=== PATIENT | male | born 1940 | race Caucasian/White ===

== ENCOUNTER 2018-01-27 08:03 | Observation (INO) | payer OTHER, BC ==
[~2018-01-27] VITALS: Ht 182.9 cm; Wt 68.0 kg
--- NOTE | ~2018-01-27 | EKG ---
[address] [address] ELECTROCARDIOGRAM REPORT Name: LUZ CALIXTO Room #: 217-P [facility].#: [id number] Admission: 01/27/18 Attend Phys: Devaughn Maharaj MD, Discharge: Date of : 38 Report #: [id number] THIS REPORT FOR: //name// [facility] Test Date: 2018-01-27 Test Time: 08:39:34 Pat Name: LUZ CALIXTO Department: Room: [facility] Gender: M Coroner Transport Technician: Gayatri BENÍTEZ : 1940 Requested By: Devaughn Maharaj Order Number: [id number] MD: Reed Baumann Measurements Intervals [place] Rate: 63 P: 62 UT: 158 QRS: -54 QRSD: 136 T: 30 QT: 445 QTc: 456 Interpretive Statements Sinus rhythm RBBB and LAFB Compared to ECG 07/13/2008 22:08:42 Left anterior fascicular block now present Electronically Signed On 01-27-2018 17:02:28 CDT by Reed Baumann [email or web address] <ELECTRONICALLY SIGNED> By: Reed Baumann MD, [facility] 01/27/18 1702 0839 0839 Reed Baumann MD, [facility] /EPI
--- NOTE | ~2018-01-27 | CATHLAB ---
[facility] [address] [place] [address] INVASIVE PROCEDURE REPORT Name: LUZ CALIXTO [facility] [id number] Admission: 01/27/18 Attend Phys: Devaughn Maharaj, Discharge: Date of : 38 Date of Service: 01/27/18 1303 Report #: [id number] THIS REPORT FOR: //name// APPROVED REPORT Study performed: 01/27/2018 08:54:47 Patient Details Patient Status: Out-Patient Room #: The patient is a 77 year-old male Event Personnel Devaughn Maharaj Powderman, Diogo Greenwood RN RN, Berhane Dimas RN, Tan Vargas Monitor, Monse Frias RTR, WELLNESS PROGRAM MANAGER Scrub Procedures Performed JORDEN Place w/wo Plasty Single CIRC 011661 Renal Bilateral Peripheral Angiography 4585301 CVRENALBIL Indication Chest pain Procedure Narrative The Right Groin^ was infiltrated with 1% Lidocaine subcutaneous anesthesia. A PINNACLE 6FR Sheath #[id number] sheath was inserted into the RFA^. Coronary angiography was performed using coronary diagnostic catheters. The right coronary system was accessed and visualized with a jr4 catheter. Closure device was deployed with a 6 Fr MYNXGRIP 6/7F #[id number]. There was no hematoma. Intraoperative Conscious Sedation Sedation start time: 9.31 Case end Time: 10.31 Fentanyl 50 mcg Versed 1 mg Fluoro Time: 8.52 minutes Dose: DAP 6482 cGycm2 866 mGy Contrast Type and Amount: Visipaque 90 ml Hemodynamics The aortic pressure is 179/74 mmHg with a mean of 103 mmHg. PCI Technique Lesion Percutaneous coronary intervention was performed on the [facility] [address] [place] [address] INVASIVE PROCEDURE REPORT Name: LUZ CALIXTO Room #: [facility]#: [id number] Admission: 01/27/18 Attend Phys: Devaughn Maharaj, Discharge: Date of : 38 Date of Service: 01/27/18 1303 Report #: [id number] circumflex artery segment. A LAUNCHER 6FR EBU 3.5 #[id number] Guide Catheter was used to engage the ostium. A Luge Wire .014 x 182CM #[id number] Interventional Guidewire was used to cross the lesion. BALLOON DILATION A Balloon catheter Sprinter OTW 2.5 x 20 #[id number] was inserted and inflated up to 10.00atm for 28seconds. STENT DEPLOYMENT A drug-eluting stent RESOLUTE OTW 2.75 X 22 #[id number] was inserted and inflated up to 12.00atm for 25seconds. Additional Inflation: 16.00atm for 30seconds. Conclusion #1 successful PTCA stent of the proximal circumflex OM nondominant but moderate distribution 90% to 0% with placement of a 2.75 x 22 resolute drug-eluting stent post I to 3.0 mm. #2 FFR of mid LAD with diagonal bifurcation lesion. PDA/PD 0.92. With adenosine 0.82 will not intervene does not make physiologic significance. #3 continue dual antiplatelet therapy post-PTCA stent protocol to CCU in stable condition. Minx closure device utilized right femoral artery no complication <ELECTRONICALLY SIGNED> By: Devaughn Maharaj MD, FACC 01/27/18 1303 1303 1303 Devaughn Maharaj MD, FACC /INF
--- NOTE | ~2018-01-27 | EKG ---
[address] [place] [address] ELECTROCARDIOGRAM REPORT Name: LUZ CALIXTO Room #: 217-[facility].R.#: [id number] Admission: 01/27/18 Attend Phys: Devaughn Maharaj MD, Discharge: Date of : 38 Report #: [id number] THIS REPORT FOR: //name// [facility] Test Date: 2018-01-28 Test Time: 06:16:45 Pat Name: LUZ CALIXTO Department: Room: 217 Gender: M Sustainability Project Coordinator: GR : 1940 Requested By: Devaughn Maharaj Order Number: [id number] MD: Reed Baumann Measurements Intervals [place] Rate: 67 P: 38 NE: 169 QRS: -56 QRSD: 136 T: 13 QT: 446 QTc: 471 Interpretive Statements Sinus rhythm RBBB and LAFB Compared to ECG 01/27/2018 14:19:14 No significant changes Electronically Signed On 01-28-2018 7:39:53 CDT by Reed Baumann [email or web address] <ELECTRONICALLY SIGNED> By: Reed Baumann MD, [facility] 01/28/18 0739 5 5 Reed Baumann MD, [facility] /EPI
--- NOTE | ~2018-01-27 | EKG ---
[address] [address] ELECTROCARDIOGRAM REPORT Name: LUZ CALIXTO Room #: 217-P [facility]#: [id number] Admission: 01/27/18 Attend Phys: Devaughn Maharaj MD, Discharge: Date of : 38 Report #: [id number] THIS REPORT FOR: //name// [facility] Test Date: 2018-01-27 Test Time: 14:19:14 Pat Name: LUZ CALIXTO Department: Room: [facility] Gender: M Life Trainer: HELENA : 1940 Requested By: Devaughn Maharaj Order Number: [id number] MD: Reed Baumann Measurements Intervals [place] Rate: 62 P: 48 NE: 178 QRS: -50 QRSD: 138 T: 14 QT: 435 QTc: 442 Interpretive Statements Sinus rhythm RBBB and LAFB Compared to ECG 07/13/2008 22:08:42 No significant change was found Electronically Signed On 01-27-2018 17:08:44 CDT by Reed Baumann [email or web address] <ELECTRONICALLY SIGNED> By: Reed Baumann MD, [facility] 01/27/18 1708 1419 1419 Reed Baumann MD, [facility] /EPI
[2018-01-27] MEDS ORDERED: ZETIA10 MG PO (08:34)
[2018-01-27] MEDS ORDERED: ASPIR 8181 MG PO (08:34)
[2018-01-27] MEDS ORDERED: ATORVASTATIN CA40 MG PO (08:34)
[2018-01-27] MEDS ORDERED: PLAVIX 75 MG TA75 M1 PO (08:34)
[2018-01-27] MEDS ORDERED: NORVASC5 MG PO (08:34)
[2018-01-27] MEDS ORDERED: HYDROCHLOROTHIA25 M2 PO (08:34)
[2018-01-27] MEDS ORDERED: AVAPRO300 MG PO (08:35)
[2018-01-27 08:46] LABS: HEMATOCRIT 39.9 % (42.0-52.0); HEMOGLOBIN 13.2 gm/dL (14.0-18.0); MCH 29.5 pg (26.0-34.0); MCV 89.5 fL (80.0-100.0); RBC 4.45 mil/uL (4.50-6.00); RDW 14.2 % (10.5-14.5); WBC 11.4 thou/uL (4.0-11.0)
[2018-01-27 08:55] LABS: CALCIUM 9.3 mg/dL (8.5-10.1); POTASSIUM 4.1 mmol/L (3.5-5.1)
[2018-01-27 14:32] VITALS: BP 132/81
[2018-01-27 17:27] VITALS: BP 162/96
[2018-01-27 19:30] VITALS: BP 144/84
[2018-01-28 03:59] LABS: CALCIUM 8.9 mg/dL (8.5-10.1); CREATININE 1.8 mg/dL (0.7-1.3); POTASSIUM 4.1 mmol/L (3.5-5.1); TROPONIN-I 0.46 ng/mL (<0.06)
[2018-01-28 04:11] LABS: HEMATOCRIT 36.1 % (42.0-52.0); HEMOGLOBIN 12.3 gm/dL (14.0-18.0); MCH 30.7 pg (26.0-34.0); MCHC 34.1 g/dL (28.0-37.0); MCV 89.8 fL (80.0-100.0); RBC 4.02 mil/uL (4.50-6.00); RDW 14.3 % (10.5-14.5); WBC 9.3 thou/uL (4.0-11.0)
[2018-01-28 04:50] VITALS: BP 160/94
[2018-01-28 07:38] VITALS: BP 147/97
[2018-01-28] MEDS ORDERED: ASA5UEC PO (07:58)
[2018-01-28 10:18] VITALS: BP 147/97
== END 2018-01-28 10:55 | disposition home or self-care (01) ==
LOC: CATH 08:03 → 2N 08:17 → CATH 12:12 → ENTRNSPT 01-28 10:46 → 2N 01-28 10:55
PROVIDERS: Internal Medicine Cardiovascular Disease
DX: I25.10 Atherosclerotic heart disease of native coronary artery without angina pectoris (principal); I73.9 Peripheral vascular disease, unspecified; E78.5 Hyperlipidemia, unspecified; I71.4 Abdominal aortic aneurysm, without rupture; I12.9 Hypertensive chronic kidney disease with stage 1 through stage 4 chronic kidney disease, or unspecified chronic kidney disease; N18.9 Chronic kidney disease, unspecified; I70.1 Atherosclerosis of renal artery; I65.29 Occlusion and stenosis of unspecified carotid artery; F17.200 Nicotine dependence, unspecified, uncomplicated

== ENCOUNTER → 2018-05-11 | Outpatient (CLI) | payer OTHER, BC ==
[~2018-05-11] MED LIST: ASA5UEC PO; ASPIR 8181 MG PO; ATORVASTATIN CA40 MG PO; AVAPRO300 MG PO; HYDROCHLOROTHIA25 M2 PO; NORVASC5 MG PO; PLAVIX 75 MG TA75 M1 PO; ZETIA10 MG PO
== END ==
LOC: LAB 11:26 → CAT 11:26
DX: I71.4 Abdominal aortic aneurysm, without rupture (principal)

== ENCOUNTER 2019-05-26 14:14 | Emergency (ER) | payer OTHER ==
[~2019-05-26] VITALS: Ht 180.3 cm; Wt 68.0 kg
[2019-05-26 14:50] LABS: ABSOLUTE NEUTROPHILS 12.9 thou/uL (1.4-8.2); BASOPHILS 0.7 % (0.0-2.0); EOSINOPHILS 0.2 % (0.0-3.0); HEMATOCRIT 39.9 % (42.0-52.0); LYMPHOCYTES 6.5 % (24.0-44.0); MCH 29.6 pg (26.0-34.0); MCHC 32.7 g/dL (28.0-37.0); MCV 90.6 fL (80.0-100.0); PLATELET COUNT 356 thou/uL (150-400); POLYS 86.6 % (36.0-66.0); RDW 14.4 % (10.5-14.5)
[2019-05-26 14:57] LABS: CALCIUM 9.6 mg/dL (8.5-10.1); CREATININE 2.3 mg/dL (0.7-1.3); POTASSIUM 4.6 mmol/L (3.5-5.1)
[2019-05-26 18:03] VITALS: BP 198/110
== END 2019-05-26 18:03 | disposition home or self-care (01) ==
LOC: ER 14:14
PROVIDERS: Student in an Organized Health Care Education/Training Program
DX: I73.9 Peripheral vascular disease, unspecified (principal); I10 Essential (primary) hypertension; I71.4 Abdominal aortic aneurysm, without rupture; J44.9 Chronic obstructive pulmonary disease, unspecified; K21.9 Gastro-esophageal reflux disease without esophagitis; G43.909 Migraine, unspecified, not intractable, without status migrainosus; F17.210 Nicotine dependence, cigarettes, uncomplicated; Z95.5 Presence of coronary angioplasty implant and graft; Z91.041 Radiographic dye allergy status

== ENCOUNTER 2019-05-27 13:52 | Inpatient (IN) | payer OTHER ==
[~2019-05-27] VITALS: Ht 182.9 cm; Wt 64.0 kg
[2019-05-27 16:45] LABS: HEMATOCRIT 35.3 % (42.0-52.0); HEMOGLOBIN 11.7 gm/dL (14.0-18.0); MCH 30.3 pg (26.0-34.0); MCV 91.8 fL (80.0-100.0); RBC 3.84 mil/uL (4.50-6.00); RDW 14.6 % (10.5-14.5); WBC 9.3 thou/uL (4.0-11.0)
[2019-05-27 17:00] LABS: CHOLESTEROL 174 mg/dL (<200); HDL CHOLESTEROL 39 mg/dL (>40); LDL CHOLESTEROL 112 mg/dL (<100); TC:HDL 4.5 Ratio (Not establshd); TRIGLYCERIDE 116 mg/dL (<150); VLDL 23 mg/dL (<40)
[2019-05-27 18:01] LABS: CALCIUM 8.9 mg/dL (8.5-10.1); CREATININE 2.1 mg/dL (0.7-1.3); POTASSIUM 3.5 mmol/L (3.5-5.1); TOTAL BILIRUBIN 0.3 mg/dL (<0.1-1.0); TOTAL PROTEIN 6.7 g/dL (6.4-8.2)
[2019-05-27 19:45] LABS: FOLIC ACID 9.4 ng/mL (8.6-58.9)
[2019-05-27 20:15] VITALS: BP 172/98
[2019-05-28] VITALS (7 sets, daily range): BP systolic 128–167; BP diastolic 67–90
[2019-05-28 04:02] LABS: HEMATOCRIT 38.4 % (42.0-52.0); HEMOGLOBIN 12.3 gm/dL (14.0-18.0); MCH 29.4 pg (26.0-34.0); MCHC 32.1 g/dL (28.0-37.0); MCV 91.6 fL (80.0-100.0); RBC 4.19 mil/uL (4.50-6.00); RDW 15.1 % (10.5-14.5)
[2019-05-28 04:30] LABS: ALBUMIN 3.1 g/dL (3.4-5.0); ANION GAP 10 mmol/L (7-16); BUN 28 mg/dL (7-18); CALCIUM 8.7 mg/dL (8.5-10.1); CHLORIDE 103 mmol/L (98-107); CO2 24 mmol/L (21-32); CREATININE 1.9 mg/dL (0.7-1.3); GLUCOSE 86 mg/dL (74-106); PHOSPHORUS 2.8 mg/dL (2.5-4.9); POTASSIUM 3.4 mmol/L (3.5-5.1); SODIUM 137 mmol/L (136-145); TROPONIN-I <0.06 ng/mL (<0.06)
[2019-05-28 15:01] LABS: URINE BILIRUBIN NEGATIVE (Negative); URINE BLOOD NEGATIVE (Negative); URINE CLARITY CLEAR; URINE COLOR YELLOW; URINE GLUCOSE-RANDOM* NEGATIVE (Negative); URINE KETONES NEGATIVE (Negative); URINE LEUKOCYTES NEGATIVE (Negative); URINE NITRITE NEGATIVE (Negative); URINE PROTEIN (DIPSTICK) NEGATIVE (Negative); URINE UROBILINOGEN 0.2 E.U./dl (0.2-1.0)
[2019-05-28 15:06] LABS: URINE CREATININE-RANDOM* 49.4 mg/dL; URINE PROTEIN-RANDOM* 11.2 mg/dL (<11.9)
[2019-05-29 03:36] LABS: CALCIUM 8.7 mg/dL (8.5-10.1); CREATININE 1.9 mg/dL (0.7-1.3); PHOSPHORUS 3.1 mg/dL (2.5-4.9); POTASSIUM 3.9 mmol/L (3.5-5.1)
[2019-05-29 04:45] VITALS: BP 140/84
[2019-05-29 07:50] VITALS: BP 142/75
[2019-05-29 11:52] VITALS: BP 148/90
[2019-05-29 15:15] VITALS: BP 142/96
[2019-05-29 20:15] VITALS: BP 150/87
[2019-05-30 07:28] VITALS: BP 136/87
[2019-05-30 14:26] VITALS: BP 143/83
[2019-05-30 20:15] VITALS: BP 141/90
[2019-05-31 08:25] VITALS: BP 121/78
[2019-05-31 09:06] LABS: CALCIUM 9.3 mg/dL (8.5-10.1); CREATININE 2.2 mg/dL (0.7-1.3); POTASSIUM 4.2 mmol/L (3.5-5.1)
[2019-05-31 10:31] LABS: FOLIC ACID 9.2 ng/mL (8.6-58.9)
[2019-05-31 12:15] VITALS: BP 121/78
--- NOTE | 2019-05-31 15:47 | EKG ---
[address] [place] [address] ELECTROCARDIOGRAM REPORT Name: LUZ CALIXTO Room #: 411-P ADM IN M.R.#: [id number] Admission: 05/27/19 Attend Phys: Jose Mcknight Discharge: Date of : 38 Report #: [id number] THIS REPORT FOR: //name// [facility] Test Date: 2019-05-28 Test Time: 08:14:16 Pat Name: LUZ CALIXTO Department: Room: 411 Gender: M Field Map Technician: Cassidy DEAL : 1940 Requested By: Devaughn Maharaj Order Number: [id number] MD: Estevan Chavez Measurements Intervals [place] Rate: 58 P: 60 UT: 160 QRS: -43 QRSD: 141 T: 0 QT: 426 QTc: 419 Interpretive Statements Sinus rhythm RBBB and LAFB Compared to ECG 01/28/2018 06:16:45 No significant changes Electronically Signed On 05-31-2019 15:47:05 AIRPLANE ELECTRICAL REPAIRER by Estevan Chavez [email or web address] <ELECTRONICALLY SIGNED> By: Estevan Chavez MD 05/31/19 1547 3 Estevan Chavez MD /ANDREINA
[2019-05-31 19:43] VITALS: BP 143/91
[2019-06-01 00:15] LABS: URINE BILIRUBIN NEGATIVE (Negative); URINE BLOOD TRACE (Negative); URINE CLARITY CLEAR; URINE COLOR YELLOW; URINE GLUCOSE-RANDOM* NEGATIVE (Negative); URINE KETONES NEGATIVE (Negative); URINE LEUKOCYTES NEGATIVE (Negative); URINE NITRITE NEGATIVE (Negative); URINE PROTEIN (DIPSTICK) NEGATIVE (Negative); URINE UROBILINOGEN 0.2 E.U./dl (0.2-1.0)
[2019-06-01 07:45] VITALS: BP 151/75
--- NOTE | 2019-06-01 10:26 | HC ---
[facility] [place] [address] CONSULTATION Name: LUZ CALIXTO Room #: 411-P ADM IN M.R.#: [id number] Admission: 05/27/19 Attend Phys: Jose Mcknight Discharge: Date of : 38 Report #: [id number] THIS REPORT FOR: //name// CC: Seng Mcknight DATE OF SERVICE: 05/31/2019 CHIEF COMPLAINT: Skin tears to both elbows. HISTORY OF PRESENT ILLNESS: This is an 79-year-old male patient who was admitted on 05/27/2019 after developing lower extremity weakness. He seems quite confused at this time, but apparently has developed skin tears to both of his elbows and I have been asked to see him in this regard. The patient cannot tell me how or when he injured his elbows and cannot do much other than basic following of commands. He does make eye contact. PAST MEDICAL HISTORY: Noted for previous lithotripsy, history of migraines, renal artery stent, hypertension, coronary artery disease, hypercholesterolemia, 68-ilte-utye of smoking, gastroesophageal reflux and peripheral vascular disease. ALLERGIES: No known drug allergies. MEDICATIONS: Include Tylenol, amlodipine, Lipitor, clopidogrel, Lexapro, losartan, melatonin, multivitamin, Bystolic, Zofran, spironolactone, tamsulosin, tramadol and Ambien. SOCIAL HISTORY: The patient has a 39-ozog-zdap history of smoking. Unknown history of alcohol or drug use. FAMILY HISTORY: Unknown. REVIEW OF SYSTEMS: Not obtainable due to the patient's confusion. PHYSICAL EXAMINATION: VITAL SIGNS: At this time include temperature 36.6, pulse 66, respiratory rate 18, blood pressure 121/78. GENERAL: This is a chronically ill-appearing male patient who appears to be in minimal distress. HEENT: Head is normocephalic. Nose and throat are clear. NECK: Supple. LUNGS: Diminished. HEART: Regular rate. ABDOMEN: Bowel sounds present. EXTREMITIES: Demonstrate skin tears to both elbows, greater on the left than on [address] [address] CONSULTATION Name: LUZ CALIXTO HAKEEM Room #: 411 ADM IN M.R.#: [id number] Admission: 05/27/19 Attend Phys: Jose Mcknight Discharge: Date of : 38 Report #: [id number] the right. He has had reapproximation of some of the skin edges utilizing Steri-Strips that were in place. Upon my evaluation, he has more open areas with superficial skin tears to the right elbow. None of the areas are infected. NEUROLOGIC: The patient is alert. His level of orientation is difficult to assess. LABORATORY DATA: White blood cell count 10,000, hemoglobin 12.3. Sodium 135, potassium 4.2, chloride 101, CO2 27, BUN 31, creatinine 2.2, glucose 137. CLINICAL IMPRESSION: 1. Skin tears, bilateral elbows. 2. Dementia. 3. Chronic kidney disease. 4. History of coronary artery disease. 5. Tobacco abuse. RECOMMENDATIONS: At this point in time, we have removed some of the Tegaderm that had been applied to his skin. We will place Xeroform gauze and ABD and Kerlix to the left elbow. We have applied Moniteau to the skin tears of the right elbow and then cover with ABD and Kerlix. These topical dressings should be changed daily. Recommend continuation of current medications and PT and OT as tolerated. I appreciate being asked to see him in consultation. <ELECTRONICALLY SIGNED> By: Natan Martines MD 06/01/19 1026 [id number] Natan Martines MD /nt
[2019-06-01 15:20] VITALS: BP 149/79
[2019-06-01 20:33] VITALS: BP 140/70
[2019-06-01 22:34] VITALS: BP 140/70
--- NOTE | 2019-06-02 07:32 | HC ---
[facility] [place] [address] CONSULTATION Name: LUZ CALIXTO Room #: 411-P ADM IN M.R.#: [id number] Admission: 05/27/19 Attend Phys: Jose Mcknight Discharge: Date of : 38 Report #: [id number] THIS REPORT FOR: //name// CC: Seng Mcknight DATE OF SERVICE: 05/28/2019 REASON FOR CONSULTATION: Elevated creatinine. REASON FOR PRESENTATION: Feeling weak. HISTORY OF PRESENT ILLNESS: An 79-year-old who presented yesterday with bilateral lower extremity weakness. He has been feeling tired in the last 2-3 weeks and is not able to do his daily activity. He tells me before that he was able to do all of his daily activities. The patient is known to have an extensive past medical history including and not limited to renal vascular hypertension with renal stents in the past. Details of those are not available for me, he is also known to have coronary artery disease and had an extensive history of smoking in the past. He had an aortic stent graft placed back in 2002. His creatinine all through 2018 was in the 1.8 to 2.3 range. When he presented yesterday or few days ago, his creatinine was 2.3 and has come down to 1.9. His blood pressure was elevated. I am being consulted to manage his chronic kidney disease. Unfortunately, the patient does not have a good insight about his blood pressure control and his kidney issues. He tells me that he is not aware that he had kidney issues. PAST MEDICAL HISTORY: Extensive and includes the followin. AAA, stent graft in 2002. 2. Renal artery stent in 2001. 3. Hypertension. 4. Coronary artery disease. 5. Hyperlipidemia. 6. Fifty years of cigarette smoking. 7. Chronic obstructive pulmonary disease. 8. Bilateral carotid stenosis. 9. Peripheral vascular disease. MEDICATIONS: Currently, the patient is maintained on: 1. Atorvastatin. 2. Plavix. 3. Bystolic. 4. Norvasc. 5. Spironolactone. 6. Benicar has been discontinued. [facility] [address] [place] [address] CONSULTATION Name: LUZ CALIXTO Room #: 411-P [facility] ..#: [id number] Admission: 05/27/19 Attend Phys: Jose Mcknight Discharge: Date of : 38 Report #: [id number] FAMILY HISTORY: Significant for hypertension. REVIEW OF SYSTEMS: GENERAL: No fever or chills. CARDIOVASCULAR: No chest pain or palpitation. PULMONARY: No cough or hemoptysis. GASTROINTESTINAL: No nausea or vomiting. GENITOURINARY: No frequency, no urgency. MUSCULOSKELETAL: As per the history of present illness. SKIN: Multiple bruises on the lower extremities. NEUROLOGICAL: Significant bilateral lower extremity weakness. No headache, no dizziness. PHYSICAL EXAMINATION: VITAL SIGNS: Blood pressure now is 167/87. HEAD AND NECK: No jugular venous distention. CHEST: Clear to air bilaterally. CARDIOVASCULAR: Regular with no rub. ABDOMEN: Soft, nontender. EXTREMITIES: Multiple scratch painter on the lower extremities. LABORATORY DATA: Reviewed. Sodium 137, potassium 3.4, BUN is 28, creatinine is 1.9. IMPRESSION AND PLAN: 1. Uncontrolled hypertension. 2. Chronic kidney disease. 3. Peripheral vascular disease with extensive manifestations including abdominal aortic aneurysm stent graft, renal artery stenosis post-stent. 4. Debility. From the renal perspective, his creatinine seems to be at baseline. Blood pressure is marginally elevated. I will initiate the patient on an angiotensin receptor rebecca. Continue with the beta rebecca, calcium channel rebecca, Aldactone. Might consider adding a long-acting thiazide diuretic and discontinue Norvasc in the next few days based on his blood pressure progress. <ELECTRONICALLY SIGNED> By: Nilson Briseno MD 06/02/19 0732 0929 1036 Nilson Briseno MD /nt
[2019-06-02 11:18] LABS: CALCIUM 9.1 mg/dL (8.5-10.1); CREATININE 2.1 mg/dL (0.7-1.3)
[2019-06-02 17:21] VITALS: BP 108/68
[2019-06-02 19:56] VITALS: BP 126/71
[2019-06-03 07:05] VITALS: BP 128/60
[2019-06-03 14:15] VITALS: BP 128/75
[2019-06-03 18:06] LABS: SYPHILIS AB Non Reactive (Non Reactive)
[2019-06-03 20:02] VITALS: BP 130/77
[2019-06-04 07:27] VITALS: BP 139/80
[2019-06-04 09:12] VITALS: BP 139/80
[2019-06-04] MEDS ORDERED: LIPITOR40 MG PO (09:15)
[2019-06-04] MEDS ORDERED: BYSTOLIC 5 MG5 M1 PO (09:15)
[2019-06-04] MEDS ORDERED: COZAAR100 MG PO (09:15)
[2019-06-04] MEDS ORDERED: CLOPIDOGREL75 MG PO (09:15)
[2019-06-04] MEDS ORDERED: FLOMAX0.4 MG PO (09:15)
[2019-06-04] MEDS ORDERED: PAIN & FEVER325 MG PO (09:16)
[2019-06-04] MEDS ORDERED: TRAZODONE HCL50 MG PO (09:16)
[2019-06-04] MEDS ORDERED: LEXAPRO 10 MG T10 M1 PO (09:16)
== END 2019-06-04 14:00 | DRG 551 ==
LOC: 4N 13:52 → 2N 13:52 → 4N 05-29 11:25
PROVIDERS: Hospitalist; Nurse Practitioner Family; ADMIT Hospitalist
DX: M54.16 Radiculopathy, lumbar region (principal); N17.0 Acute kidney failure with tubular necrosis; E43 Unspecified severe protein-calorie malnutrition; Z68.1 Body mass index [BMI] 19.9 or less, adult; N17.8 Other acute kidney failure; I16.0 Hypertensive urgency; I25.10 Atherosclerotic heart disease of native coronary artery without angina pectoris; I73.9 Peripheral vascular disease, unspecified; G43.909 Migraine, unspecified, not intractable, without status migrainosus; E78.00 Pure hypercholesterolemia, unspecified; J44.9 Chronic obstructive pulmonary disease, unspecified; K21.9 Gastro-esophageal reflux disease without esophagitis; F17.210 Nicotine dependence, cigarettes, uncomplicated; N18.9 Chronic kidney disease, unspecified; E78.5 Hyperlipidemia, unspecified; I70.1 Atherosclerosis of renal artery; I65.29 Occlusion and stenosis of unspecified carotid artery; Z66 Do not resuscitate; I71.4 Abdominal aortic aneurysm, without rupture; F03.90 Unspecified dementia, unspecified severity, without behavioral disturbance, psychotic disturbance, mood disturbance, and anxiety; E86.0 Dehydration; G47.00 Insomnia, unspecified; I12.9 Hypertensive chronic kidney disease with stage 1 through stage 4 chronic kidney disease, or unspecified chronic kidney disease; R41.0 Disorientation, unspecified; S51.012A Laceration without foreign body of left elbow, initial encounter; S51.011A Laceration without foreign body of right elbow, initial encounter; Z95.820 Peripheral vascular angioplasty status with implants and grafts; Z95.5 Presence of coronary angioplasty implant and graft; Z91.14 Patient's other noncompliance with medication regimen; X58.XXXA Exposure to other specified factors, initial encounter; Y93.89 Activity, other specified; Y92.89 Other specified places as the place of occurrence of the external cause; Y99.8 Other external cause status
CPT/HCPCS: 10081; 10790

== ENCOUNTER 2019-06-04 13:10 | Inpatient (IN) | payer OTHER ==
[~2019-06-04] VITALS: Ht 182.9 cm; Wt 65.4 kg
[~2019-06-04 13:10] MED LIST changes: +BYSTOLIC 5 MG5 M1 PO; +CLOPIDOGREL75 MG PO; +COZAAR100 MG PO; +FLOMAX0.4 MG PO; +LEXAPRO 10 MG T10 M1 PO; +LIPITOR40 MG PO; +PAIN & FEVER325 MG PO; +TRAZODONE HCL50 MG PO
[2019-06-04 15:00] VITALS: BP 120/65
--- NOTE | 2019-06-04 15:30 | NUR ---
PATIENT ADMITTED TO THE ROOM, FAMILY AT BEDSIDE AND CHAIR ALARM IS ON. PT IS CONFUSED BUT PLEASANT, PICKING AT UNSEEN THINGS IN THE AIR WHILE FAMILY ASSISTS TO ANSWER ADMISSION QUESTIONS. NOTED ON ADMISSION ASSESSMENT THAT PT HAS MULTIPLE SKIN TEARS. LEFT ARM HAS ONE OPEN TEAR AND 2 CLOSED TEARS THAT HAVE STERISTRIPS INTACT. RT ELBOW HAS MULTIPLE OLD SKIN TEARS AND THESE ARE HEALING AND SCABBED. SKIN IS VERY FRAGILE. OLD DRESSINGS REMOVED, OPENAREA REDRESSED WITH PROTECTIVE PAD, AND ARM SLEEVES APPLIED PER PRIMARY RN RECOMMENDATIONS. EDUCATION FOR ADMISSION PROVIDED TO PT AND , WELL PT'S SON. PT HAS MOIRA YNSTEADY GAIT, AND URINARY URGENCY. BRIEF WAS APPLIED FOR THE EVENING AFTER PT HAD URGENCY WITH SMALL INCONT VOID.
--- NOTE | 2019-06-04 16:08 | NUR ---
chart review, pt new to acute rehab this afternoon. pt up in recliner chair with boris and son at bedside. pt a & o to self, and son. pleasant. intro to cm,team meeting, home health and transition of care. stated "well medication were a problem and could push it, he would go and order picker but then might not take it"/. pt lives in house with , multi story home, 4 steps to enter in to the home. can stay on main level . has grab bars in bath room and walk in house. [facility] had accept for hh needs at dc. in was independent prior to hospital"/pt, son and boris. will cont following as needed for dc needs.
[2019-06-04 19:45] VITALS: BP 163/97
--- NOTE | 2019-06-04 21:31 | NUR ---
PT ADMITTED TO UNIT AT APPROXIMATELY 1500. REPORT RECIEIVED FROM DAMI OVALLE ON PREVIOUS UNIT, PRIOR TO PT TRANSFER TO UNIT. NURSE, BETTY, COMPLETED ADMISSION ASSESSMENT. ADMISSION VITAL SIGNS COMPLETED, ADMISSION CONSENTS SIGNED, CONSULTS CALLED. FALL PRECAUTIONS IN PLACE AND NURSING WILL CONTINUE TO MONITOR.
[2019-06-04 22:25] VITALS: BP 152/84
--- NOTE | 2019-06-05 02:19 | NUR ---
PT ASSESSMENT COMPLETED AND VSS. MEDS GIVEN ORDERED AND WELL TOLERATED. FALL PRECAUTIONS IN PLACE. PT VERY IMPULSIVE AND CLIMBING OUT OF BED CONSTANTLY EARLY DURING SHIFT. RUNNING INTO THE ROOM FREQUENTLY. REORIENTING PT FREQUENTLY. PT CLIMBED OUT OF BED AND PLANT CONTROLS SPECIALIST TRYING TO KEEP PT SAFE. PT TRYING TO HIT STAFF AND YELLING. TRYING TO CALM PT. PT TAKING OFF CLOTHING AND TRYING TO LEAVE THE ROOM. PT YELLING GET OUT OF MY HOUSE. ENDED UP CALLING SECURITY BECAUSE NOT ABLE TO CALM PT. SECURITY WAS ABLE TO ENCOURAGE PT TO GET IN BED. CONTACTED COOK COLD MEAT СВЕТЛАНА AND INFORMED HER OF PT HX AND CURRENT STATUS. PER ORDERS GAVE 1 MG HALDOL. 2ND PLANT CONTROLS SPECIALIST SITTING WITH PT. PT CALM AT THIS TIME. WILL CONTINUE TO MONITOR FREQUENTLY.
[2019-06-05 05:44] LABS: HEMATOCRIT 34.5 % (42.0-52.0); HEMOGLOBIN 11.4 gm/dL (14.0-18.0); MCH 30.1 pg (26.0-34.0); MCHC 33.2 g/dL (28.0-37.0); MCV 90.6 fL (80.0-100.0); RBC 3.8 mil/uL (4.50-6.00); RDW 14.3 % (10.5-14.5)
[2019-06-05 05:55] LABS: CALCIUM 8.9 mg/dL (8.5-10.1); CREATININE 1.8 mg/dL (0.7-1.3); POTASSIUM 3.6 mmol/L (3.5-5.1)
[2019-06-05 09:17] VITALS: BP 88/53
--- NOTE | 2019-06-05 14:15 | NUR ---
ASSUMED CARE AT 0700. PATIENT IS ALERT AND ORIENTED TO PERSON ONLY. PATIENT IS NOT COMBATIVE HE WAS ON NIGHTS. LUNGS ARE DEMINISHED. ABD IS SOFT WITH BSX4. INCONTINENT AT TIMES. UP WITH ASSIST OF 1 STAFF, GAIT BELT. GAIT IS UNSTEADY. UP TO THE DINING ROOM IN W/C FOR MEALS WITH LAP BELT FOR SAFETY. FALL AND SAFTY PROTOCOLS IN PLACE. DENIES ANY PAIN. CONTINUES TO PROGRESS SLOWLY TOWARDS D/C GOALS. WAS HERE AT BREAKFAST. DR. HUNTER HERE TO SEE PATIENT. WILL CONTINUE TO MONITER.
--- NOTE | 2019-06-05 14:24 | NUR ---
PATIENT HAS SKIN TEARS ON BOTH ELBOWS. PATIENT HAS OPTFOAM TO LEFT ELBOW COVERED WITH KERLIX. PATIENT HAS TUBIGRIP TO THE RIGHT ELBOW. WILL CONTINUE TO MONITER.
[2019-06-05 20:59] VITALS: BP 108/62
--- NOTE | 2019-06-06 03:07 | NUR ---
ASSUMED CARE AT APPROX 1900 EVENING 06/05. PT SITTING UP IN BED AT CHANGE OF SHIFT WATCHING TV AND FAMILY AT BEDSIDE. PT ALERT, ORIENTED X1-2. PT REFUSED TO CHANGE INTO GOWN AT HS. PT TOOK HS MEDS WITH WATER WHILE FAMILY HERE. PT UP TO BATHROOM TO STAND AND VOID IN TOILET SMALL AMT MISSING TOILET AT TIMES. PT DID GET UP QUICKLY APPROX 1 HR AGO NOT WAITING FOR ASSISTANCE. PT HAD SPILLED JUICE ALL OVER FLOOR AND BED ALARM WAS ON HOWEVER PT QUICK AND IN BATHROOM BEFORE STAFF ARRIVED. CHANGED SETTING ON BED ALARM TO SIT UP CHOICE. PT NOW BACK TO BED SLEEPING SOUNDLY. CALL LIGHT IN REACH. ALARM ON. WILL CONTINUE TO MONITOR.
[2019-06-06 05:36] LABS: CALCIUM 8.4 mg/dL (8.5-10.1); PHOSPHORUS 2.8 mg/dL (2.5-4.9); POTASSIUM 3.5 mmol/L (3.5-5.1)
[2019-06-06 08:09] VITALS: BP 98/59
[2019-06-06 19:19] VITALS: BP 145/75
--- NOTE | 2019-06-06 19:54 | NUR ---
ASSUMED CARE OF PT AT 0715. PT IS A&OX3, BLOOD PRESSUE LOW, BYSTOLIC HELD, B/P RECHECKED AT 1200, 104/51, HR 64. SKIN TEARS TO THE BILATERAL AMRS DRESSED PER ORDERS. PT PERIODICALLY CONFUSED, BUT PLEASANT. LUNG SOUNDS DIMINISHED BILATERALLY IN ALL LOBES. DENIES PAIN. MAKES ATTEMPTS TO TURN OFF ALARMS. FALL PRECAUSTIONS IN PLACE AND NURSING WILL CONTINUE TO MONITOR.
--- NOTE | 2019-06-07 00:57 | NUR ---
PT ASSESSMENT COMPLETED AND VSS. MEDS GIVEN ORDERED AND WELL TOLERATED. FALL PRECAUTIONS IN PLACE. VERY IMPULSIVE AND UNSTEADY. PT HAS NOT BEEN AGITATED THIS EVENING. SLEEPING AT THIS TIME. WILL CONTINUE TO MONITOR FREQUENTLY.
--- NOTE | 2019-06-07 07:59 | NUR ---
PT HAS NOT BEEN ABLE TO FOLLOW ANY COMMANDS DURING THE NIGHT WHEN HE IS IMPULSIVE. PT IS VERY UNSTEADY. WHEN PT NEEDS TO VOID HE IS NOT ABLE TO USE A URINAL. HE ENDS UP VOIDING ALL OVER THE FLOOR AND EVEN WHEN STANDING IN FRONT OF THE TOILET WILL NOT VOID IN THE TOILET. PT ENDS UP VOIDING ALL OVER THE FLOOR AND BESIDE THE TOILET BUT NOT IN THE TOILET EVERY TIME. INFORMED DAY RN.
[2019-06-07 08:52] VITALS: BP 104/50
[2019-06-07 19:15] VITALS: BP 165/90
--- NOTE | 2019-06-07 20:28 | NUR ---
ASSUMED CARE AT 0700, PT A&O TO PERSON, CONFUSED AT TIMES AND IMPULSIVE. NO ACUTE DISTRESS DURING SHIFT. CONDITION STABLE, VS STABLE, O2 ON RA. PT HAS UNSTEADY GAIT, MAX ASSIST X 1 WITH TRANSFERS. DENIES PAIN OR DISCOMFORT, TOLERATED THERAPY AND TOLERATED MEDS WHOLE WITH WATER. NO IV ACCESS, BM 06/05/19 PRN GIVEN TO AID BM. BED IN LOWEST POSITION, CALL LIGHT WITHIN REACH, WILL CONTINUE TO MONITOR PER POC.
--- NOTE | 2019-06-08 02:48 | NUR ---
PT ASSESSMENT COMPLETED AND VSS. MEDS GIVEN ORDERED AND WELL TOLERATED. FALL PRECAUTIONS IN PLACE. PT VERY IMPULSIVE AND AGITATED AT TIMES. PT ALSO VERY FAST WHEN CLIMBING OUT OF BED FREQUENTLY. PT REMAINS VERY CONFUSED. UNABLE TO REORIENT PT. MOVED TO PT ROOM 513 SO THAT HE WOULD BE CLOSER TO THE NURSES STATION TO HELP PREVENT A FALL. PT HAD TWO LARGE LIQUID STOOLS THIS EVENING. PT VOIDING ON THE FLOOR AND MISSES THE TOILET EVERY TIME. PT IS NOT AWARE OF WHERE THE TOILET IS WHEN HE ATTEMPTS TO SIT DOWN. PT NEEDING A LOT OF DIRECTION WHICH HE IS NOT ABLE TO FOLLOW. SLEEPING ON AND OFF. WILL CONTINUE TO MONITOR FREUQENTLY.
[2019-06-08 10:11] VITALS: BP 115/60
[2019-06-08 18:44] LABS: URINE BILIRUBIN NEGATIVE (Negative); URINE BLOOD NEGATIVE (Negative); URINE CLARITY CLEAR; URINE COLOR YELLOW; URINE GLUCOSE-RANDOM* NEGATIVE (Negative); URINE KETONES NEGATIVE (Negative); URINE LEUKOCYTES-REFLEX NEGATIVE (Negative); URINE NITRITE-REFLEX NEGATIVE (Negative); URINE PROTEIN (DIPSTICK) NEGATIVE (Negative); URINE UROBILINOGEN 0.2 E.U./dl (0.2-1.0)
[2019-06-08 19:24] VITALS: BP 149/76
--- NOTE | 2019-06-08 19:41 | NUR ---
ASSUMED CARE AT 0700, A&O TO PERSON, INPULSIVE, AND CONFUSED. NO ACUTE DISTRESS DURING SHIFT. PT TENDS TO GET OUT OF BED AND CHAIR WITHOUT HELP AND HAS AN UNSTEADY GAIT. TOLERATED THERAPY. UP WITH ASSIST X 1 WITH TRANSFERS AND WALKING TO BATHROOM. CXR AND URINALYSIS DONE TODAY PER ORDERS. PT HAS NO IV ACCESS, RECEIVED PRN TYLENOL FOR L SIDE PAIN WITH ADEQUATE RELIEF. BM 06/08/19, URINARY URGENCY BUT CONTINENT DURING SHIFT. BED IN LOWEST POSITION, CALL LIGHT WITHIN REACH, WILL CONTINUE TO MONITOR PER POC.
--- NOTE | 2019-06-09 03:28 | NUR ---
STEADY GAIT, BUT IN NEED OF CONTACT GUARD ASSIST TO GET TO BATHROOM. ALSO NEEDS REDIRECTION BACK TO BED AND REORIENTATION IN GENERAL OF NEED TO STAY. BED ALARM AND ROOM NEAR STATION HAS COME IN HANDY AT LEAST 4 TIMES TONIGHT HE ONLY USED CALL LIGHT TONIGHT TO ALERT STAFF OF NEED TO USE BATHROOM. SO FAR HE HAS ONLY USED CALL LIGHT TO ATTEMPT TO CHANGE TV CHANNEL.
--- NOTE | 2019-06-09 09:10 | NUR ---
ASSUMED CARE AT 0700. PATITEN IS ALERT AND ORIENTED X1 TO PERSON ONLY. PATIENT GERARD. PATIENT IS UP WITH ASSIST OF 1 WITH GAIT BELT AND WALKER TO BATHROOM. PATIENT IS INCONTINENT OF URINE. UP IN HIS W/C AND OUT TO DINING ROOM FOR BREAKFAST. FALL AND SAFETY PROTOCOLS IN PLACE. DENIES PAIN AT THIS TIME. CONTINUES TO PROGESS SLOWLY TOWARDS D/C GOALS. WILL CONTINUE TO MONITER.
[2019-06-09 19:27] VITALS: BP 129/69
--- NOTE | 2019-06-10 00:50 | NUR ---
PT SET OFF BED ALARM TRYING TO GET TO BR. PT ASSISTED TO BR. WHEN RETURNING TO BED PT BECAME VERY AGITATED, HITTING AT STAFF, INSISTING ON GOING HOME. WOULD NOT LET GO OF WALKER OR GET INTO BED. ASSISTED TO W/C WITH 3 PEOPLE AND WAS STILL FIGHTING AND TRYING TO STAND UP. VERY UNSTEADY. SECURITY CALLED AND PT ASSISTED TO BED BY 2 SECURITY GUARDS. PT HAS LARGE SKIN TEAR TO LEFT FOREARM. DRESSING APPLIED. IWONA JULIAN NP CALLED WITH ORDERS RECEIVED. JAYSON GIVEN ORDERED. PT APPEARS TO BE SLEEPING NOW. BED ALARM ON AT ALL TIMES. WILL CONTINUE TO MONITOR PT CLOSELY.
--- NOTE | 2019-06-10 07:15 | NUR ---
PT'S AI NOTIFIED OF SKIN TEAR ON LEFT FOREARM. CONCERNED THAT HE WILL NEED A BATH OR SHOWER TODAY.
[2019-06-10 07:45] VITALS: BP 127/63
--- NOTE | 2019-06-10 14:16 | NUR ---
ASSUMED CARES AT 0700. PT AWAKE, ORIENTED TO PERSON ONLY. CONFUSED AND FORGETFUL. C/O PAIN AROUND WOUND ON LEFT ARM DURING DRESSING CHANGE. WOUND CLEANED AND DRESSING CHANGED BY WOUNDCARE COORDINATOR & PHYSICIAN. PT NAPPING AFTER THERAPY. PT VOIDING PER BATHROOM, NO INCONTINENCE NOTED. UP WITH 1 MIN ASSIST, GB AND WALKER AND TOLERATED WELL. PT IN W/C WONDERING AROUND THE UNIT. FREQ. VISUAL CHECKS. FALL PRECAUTIONS IN PLACE
[2019-06-10 20:07] VITALS: BP 121/66
--- NOTE | 2019-06-11 00:04 | NUR ---
PT ASSESSMENT DONE AND VSS. MEDS GIVEN AND WELL TOLERATED. FALL PRECAUTIONS IN PLACE. SLEEPING WELL. HOURLY ROUNDING. CALL LIGHT IN REACH. WILL CONTINUE TO MONITOR.
[2019-06-11 09:01] VITALS: BP 117/57
--- NOTE | 2019-06-11 09:26 | O ---
[facility] [place] [address] OPERATIVE REPORT Name: LUZ CALIXTO Room #: 513-P ADM IN M.R.#: [id number] Admission: 06/04/19 Attend Phys: Tan Chan MD Discharge: Date of : 38 Report #: [id number] THIS REPORT FOR: //name// CC: Seng Chan DATE OF SERVICE: 06/10/2019 CHIEF COMPLAINT: Skin tear/laceration to the left forearm. HISTORY: This is an 79-year-old male patient, who I have been following for other skin tears, who apparently was a bit combative last night and sustained a full-thickness skin tear to the left forearm leaving a very large deficit. PROCEDURE PERFORMED: Repair of a skin laceration measuring a total of 18 linear cm. PREPROCEDURE DIAGNOSIS: 18 cm laceration, left forearm. POSTPROCEDURE DIAGNOSIS: 18 cm laceration, left forearm. DESCRIPTION OF PROCEDURE: The patient and his son have given verbal consent at bedside to perform repair of the injury. A time-out was taken. Correct patient, correct site were verified. The wound was then irrigated copiously with saline. A large skin flap was folded and rolled upon itself. I have used tissue forceps to carefully unroll and advance the flap back to fairly good wound approximation with very little remaining open. Once this was performed, a subcutaneous hematoma was carefully expressed from beneath the skin flap and then the skin flap was secured using a skin adhesive/[place]. The patient tolerated the procedure well, pain 2 on a scale of 1-10. COMPLICATIONS: None. ESTIMATED BLOOD LOSS: 4 mL. PAIN POSTPROCEDURE: 0/10. <ELECTRONICALLY SIGNED> By: Natan Martines MD 06/11/19 0926 1124 1230 Natan Martines MD /nt
--- NOTE | 2019-06-11 11:11 | H ---
[facility] [place] [address] HISTORY AND PHYSICAL Name: LUZ CALIXTO Room #: 513-P ADM IN M.R.#: [id number] Admission: 06/04/19 Attend Phys: Tan Chan MD Discharge: Date of : 38 Report #: [id number] THIS REPORT FOR: //name// CC: Seng Chan DATE OF SERVICE: 06/04/2019 HISTORY AND PHYSICAL/POST-ADMISSION PHYSICIAN EVALUATION HISTORY OF PRESENT ILLNESS: The patient is an 79-year-old male who was originally admitted to [facility] on 05/27/2019, after squatting down for a couple of minute to add air to a tire when he was unable to stand back up. He had continued lower extremity weakness. He was evaluated by Cardiology, Nephrology and hospitalist services. Lumbar MRI was obtained revealed changes consistent with lumbar radiculopathy and lower extremity weakness. He had hypertensive urgency upon admission and several blood pressure medications changes were made. He had acute renal insufficiency, superimposed on chronic kidney disease. His course was complicated by mental status changes with acute delirium and was at one point needing on one-on-one sitter. This was able to be stopped as he did show some improvement with cognition. He has been admitted now for acute in-hospital inpatient rehabilitation. He does have a prior history of lithotripsy, abdominal aortic aneurysmal stenting, renal artery stenting, hypertension, cardiac catheterization, hypercholesterolemia, COPD, GERD, bilateral carotid stenosis, stents to legs. HABITS: History of [id number] tobacco. ALLERGIES: No known drug allergies. MEDICATIONS: Please see the full medication listing. SOCIAL HISTORY: Lives at home with his , 4 steps in and then a flight of stairs to the bedroom. He utilizes no adaptive device. He was independent with ADLs and IADLs premorbidly. REVIEW OF SYSTEMS: He did not offer any complaints of chest pain, shortness of breath or abdominal discomfort. PHYSICAL EXAMINATION: GENERAL: The patient was seen earlier 79-year-old male, in no obvious distress. VITAL SIGNS: Last recorded temperature 36.4, pulse 51, respirations 16, and blood pressure 88/53. NEUROLOGIC: He is alert, follows basic 1 step commands, definite latency to his responses. He has definite decreased short term memory. HEENT: Facies are symmetric. CHEST: Sounded clear to auscultation. CARDIOVASCULAR: Regular rate and rhythm. ABDOMEN: Bowel sounds positive, nontender. GENITOURINARY: Rectal; deferred. [facility] [address] [place] [address] HISTORY AND PHYSICAL Name: LUZ CALIXTO Room #: 3 ADM IN M.R.#: [id number] Admission: 06/04/19 Attend Phys: Tan Chan MD Discharge: Date of : 38 Report #: [id number] NEUROLOGICAL: Strength upper extremities grossly 4-/5. Lower extremity is probably at least 3+ to 4-. He does have some venous stasis skin changes noted. He does need assistance with functional mobility skills, max assist sit to stand. IMPRESSION: An 79-year-old white male with the following problem list: 1. Lumbar radiculopathy with bilateral lower extremity weakness. 2. Acute delirium/multifactorial encephalopathy, this is improved, but will need to be further assessed. 3. Hypertensive urgency, which has resolved. 4. Peripheral vascular disease with coronary artery disease with history of stenting. 5. Acute renal insufficiency superimposed on chronic kidney disease. 6. Abdominal aortic aneurysm, status post repair history. 7. Renal artery stenosis. 8. Hyperlipidemia. 9. Tobacco abuse. PLAN: The patient has been admitted for acute in-hospital inpatient rehabilitation. From a postadmission physician evaluation perspective, there are no relevant changes since the preadmission screening. Please see the above review of prior and current medical and functional conditions and comorbidities. Please see the patient's previous and current functional status. As far as risk of complications, the patient has multiple medical comorbidities as noted above. Initial plan of care involves the interdisciplinary acute inpatient rehabilitation program. Prognosis is reasonably good with estimated length of stay probably at least 10 days to 2 weeks and likely longer as warranted. Potential barriers would include his multiple medical comorbidities and decreased functional status. <ELECTRONICALLY SIGNED> By: Tan Chan MD 06/11/19 1111 [id number] 1315 Tan Chan MD /nt
--- NOTE | 2019-06-11 12:32 | NUR ---
team meeting, recommendation: dr hernandez consult, reported been confused, agitation, with behaviors. incont of bladder at hs. re team with anticipated and pending progress 06/25/2019, as of now will need 24hr supervision with assist with medication and fiances. will cont following as needed for dc needs.
--- NOTE | 2019-06-11 16:35 | NUR ---
ASSUMED CARES AT 0700. PT ORIENTED TO PERSON ONLY. FORGETFUL. DENIES PAIN. VITALS REMAIN STABLE. LEFT FOREARM WOUND CLEANED AND DRESSING CHANGED, MINIMAL AMOUNT OF RED DRAINAGE NOTED. PT UP TO THE BATHROOM WITH 1 MIN ASSIST, GB AND WALKER AND TOLERATED WELL. Q1H VISUAL CHECKS. CALL LIGHT WITHIN REACH. FALL PRECAUTIONS IN PLACE
--- NOTE | 2019-06-11 16:45 | NUR ---
NURSE ASSISTANT MEDIA PLANNER RECEIVED REPORT FROM TOMMY HUNG, THAT PT'S HAD MULTIPLE CONCERNS REGARDING HIS DIET, A SKIN TEAR, AGITATION AT NIGHT R/T MEDICATIONS, AND HIS OVERALL WEAKNESS. NM ATTEMPTED TO MEET WITH HER, BUT SHE WAS ON HER CELL PHONE IN THE PT'S ROOM AND UNABLE TO TALK. WILL ATTEMPT AGAIN IN A FEW MINUTES.
--- NOTE | 2019-06-11 17:24 | NUR ---
NM MET WITH PATIENT'S REGARDING HER CARE CONCERNS. PT'S STATED THAT SHE FELT THAT 1 HOUR OF PHYSICAL THERAPY PER DAY WAS NOT ENOUGH TO INCREASE PT'S STRENGTH, AND SHE REQUESTED THAT WE ALLOW HER TO WALK HIM AROUND SOME. NOTED TO HER THAT HIS LEVEL OF ASSIST IS MIN TO MAX ASSIST WITH THE THERAPIST CURRENTLY, AND THAT SHE WOULD NEED SOME TRAINING BEFORE IT WOULD BE CONSIDERED SAFE TO DO THIS. SHE STATED, "I DIDN'T KNOW THAT HE WAS NEEDING THAT MUCH ASSIST. WHAT IS HIS PROGNOSIS? WILL I BE ABLE TO CARE FOR HIM AT HOME? 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 I KNOW HE CANNOT DRIVE AND I AM JUST GOING TO SELL HIS TRUCK." REGARDING PROGNOSIS, NM DEFERRED HER TO THE MD, AND RECOMMENDED THAT THIS BE ADDRESSED BY HIM. REGARDING THERAPY TIME, THIS WAS DISCUSSED WITH THE PHYSICAL THERAPIST, WHO WILL ADDRESS ON FRIDAY. PT ALSO WITH POOR PO INTAKE PER 'S REPORT, AND HIS PREFERENCE IS TO NOT HAVE ANY MORE TURKEY. THIS WAS SENT TO THE KITCHEN A NURSING MESSAGE. DR. CHOPRA IS CURRENTLY IN TO SEE THE PATIENT, AND IS TALKING WITH THE PATIENT'S .
[2019-06-11 19:44] VITALS: BP 157/83
--- NOTE | 2019-06-11 23:53 | NUR ---
PT ASSESSMENT DONE AND VSS. MEDS GIVEN AND WELL TOLERATED. FALL PRECAUTIONS IN PLACE. SLEEPING WELL. HOURLY ROUNDING. CALL LIGHT IN REACH. WILL CONTINUE TO MONITOR.
[2019-06-12 07:25] VITALS: BP 128/80
--- NOTE | 2019-06-12 16:30 | NUR ---
ASSUMED CARES AT 0700. PT ORIENTED TO PERSON ONLY, FORGETFUL AND CONFUSED. NO IMPULSIVITY OR COMBATIVENESS NOTED. PT CALM AND PLEASANT ALL DAY. DENIES PAIN. VITALS REMAIN STABLE. LEFT ARM WOUND CLEANED AND DRESSING CHANGED, SMALL AMOUNT OF SEROUSANGUINOUS DRAINAGE NOTED. PT UP WITH 1 MIN ASSIST, GB AND WALKER AND TOLERATED WELL. Q1H VISUAL CHECKS. CALL LIGHT WITHIN REACH. FALL PRECAUTIONS IN PLACE
[2019-06-12 20:00] VITALS: BP 118/66
--- NOTE | 2019-06-13 00:49 | NUR ---
PT ALERT AND ORIENTED X 1, CONFUSED AND IMPULSIVE. AMB TO BR WITH WALKER AND ASSIST X 1. DRESSINGS TO LEFT ARM AND RIGHT FOREARM C/D/I. PT DENIES PAIN OR DISCOMFORT. BED ALARM ON FOR SAFETY. PT APPEARS TO BE SLEEPING ON HOURLY ROUNDS. PT HALLUCINATING AND TALKING TO HIMSELF AT TIMES. PT EASILY VISIBLE FROM NURSES STATION.
[2019-06-13 05:16] LABS: CALCIUM 9.5 mg/dL (8.5-10.1); POTASSIUM 4.7 mmol/L (3.5-5.1)
[2019-06-13 08:30] VITALS: BP 101/60
--- NOTE | 2019-06-13 15:23 | NUR ---
ASSUMED CARE AT 0700, PT A&O TO PERSON, ALSO IMPULSIVE AND CONFUSED, AT BEDSIDE. VS STABLE, O2 ON RA. PT DENIES PAIN, NO IV, TOLERATES MEDS WHOLE WITH WATER. MAX ASSIST X 1 WITH TRANSFERS, USES WALKWE AND WHEELCHAIR. LAST BM 06/12/19, VOIDS WITH URINAL AND USES RESTROOM. BED IN LOWEST POSITION, CALL LIGHT WITHIN REACH, WILL CONTINUE TO MONITOR PER POC.
[2019-06-13 19:28] VITALS: BP 150/70
--- NOTE | 2019-06-13 23:22 | NUR ---
PT SET OFF BED ALARM. FOUND STANDING NEAR SIDE OF BED STATED HE WANTED TO GET SOME MILK. PT BECAME VERY AGITATED WHEN ATTEMPTED TO ASSIST HIM TO BED. BEGAN FIGHTING AND HITTING AT STAFF. SECURITY CALLED AND HE WAS ASSISTED TO BED BY 2 SECURITY GUARDS. DOROTHY LIM NP NOTIFIED WITH ORDERS RECEIVED. ZYPREXA GIVEN ORDERED. PT NOW RESTING IN BED QUIETLY. BED ALARM ON FOR SAFETY. PT EASILY VISIBLE FROM NURSES STATION. WILL CONTINUE TO MONITOR.
[2019-06-14 06:35] LABS: CALCIUM 9.4 mg/dL (8.5-10.1); CREATININE 2.2 mg/dL (0.7-1.3); POTASSIUM 4.4 mmol/L (3.5-5.1)
[2019-06-14 10:17] VITALS: BP 99/51
[2019-06-14 19:28] VITALS: BP 138/74
--- NOTE | 2019-06-14 20:48 | NUR ---
assumed care of pt at 0715. pt is alert and oriented to person and place, and confused. pt is not agitated or impulsive at this time and vital signs are stable. pt denies pain and participated in scheduled therapies. skin tear to lue changed per orders. mri ordered for this shift and neurology consulted per orders. no iv access. pt does not call for assistance, room near nurses station, fall precautions in place and nursing will continue to monitor.
--- NOTE | 2019-06-15 00:57 | NUR ---
PT ASSESSMENT DONE AND VSS. MEDS GIVEN AND WELL TOLERATED. FALL PRECAUTIONS IN PLACE. SLEEPINT WELL. HOURLY ROUNDING. CALL LIGHT IN REACH. WILL CONTINUE TO MONITOR.
[2019-06-15 07:45] VITALS: BP 132/85
--- NOTE | 2019-06-15 11:37 | NUR ---
ASSUMED CARE OF PT AT 0715. PT IS A&OX4 AND VITAL SIGNS ARE STABLE. PT DENIES PAIN. ORDERS FOR DISCHARGE THIS SHIFT. REVIEWED DISCHARGE MEDICATIONS, INSTRUCTIONS AND EDUCATION WITH PATIENT. PT DENIES ANY QUESTIONS. PT INFORMED THAT W/C WILL BE DELIVERED TO HOME. PT STATES THAT SHE WILL CALL DAUGHTER FOR RIDE, NO TIME KNOWN AT THIS TIME. FALL PRECAUTIONS IN PLACE. PT CALLS APPROPRIATELY FOR ASSISTANCE. NURSING WILL CONTINUE TO MONITOR PT PRIOR TO LEAVING UNIT.
--- NOTE | 2019-06-15 13:25 | NUR ---
team meeting, recommendation: had mri showing multiple small cva recent. aggression at hs, new meds ordered. skin tear, fragile thin skin. neuro consult dc 06/25/2019 hh ( pt, ot, st, nursing, sw,), 24hr supervisor [employer], assist with bills and pills. will need fww.
--- NOTE | 2019-06-15 13:40 | 2DMMODE ---
[facility] [address] [place] [address] 2 D/M-MODE ECHOCARDIOGRAM Name: MARILYESCOBAR HAKEEM Room #: 513-P ADM IN M.R.#: [id number] Admission: 06/04/19 Attend Phys: Tan Chan, Discharge: Date of : 38 Report #: [id number] THIS REPORT FOR: //name// APPROVED REPORT Study performed: 06/15/2019 12:50:20 EXAM: Comprehensive 2D, Doppler, and color-flow Echocardiogram Patient Location: Bedside Room #: 3 Status: routine BSA: 1.85 HR: 60 bpm BP: 132/85 mmHg Rhythm: NSR Other Information Study Quality: Technically DifficultTechnically Limited Technically limited study due to lung disease, inability to position patient. Indications COPD CAD Hypertension/HDD Volumes Left Atrial Volume (Systole) Single Plane 4CH: 28.74 mL Single Plane 2CH: 42.98 mL LA ESV Index: 26.00 mL/m2 Aortic Valve AoV Peak Dinesh.: 1.12 m/s AO Peak Gr.: 5.74 mmHg LVOT Max P.26 mmHg LVOT Max V: 1.03 m/s Mitral Valve E/A Ratio: 0.8 MV Decel. Time: 410.47 ms MV E Max Dinesh.: 0.80 m/s MV A Dinesh.: 1.00 m/s MV PHT: 119.04 ms IVRT: 133.79 ms Pulmonary Vein [facility] [address] [place] [address] 2 D/M-MODE ECHOCARDIOGRAM Name: LUZ CALIXTO Room #: 513-P ADM IN M.R.#: [id number] Admission: 06/04/19 Attend Phys: Tan Chan, Discharge: Date of : 38 Report #: [id number] P Vein S: 0.64 m/s P Vein A: 0.26 m/s P Vein D: 0.32 m/s P Vein A Dur.: 143.0 msec P Vein S/D Ratio: 2.00 Tricuspid Valve TR Peak Dinesh.: 2.23 m/s TR Peak Gr.: 19.97 mmHg PA Pressure: 20.00 mmHg Left Ventricle The left ventricle is normal size. There is normal LV segmental wall motion. There is normal left ventricular wall thickness. The left ventricular systolic function is normal. The left ventricular ejection fraction is within the normal range. LVEF is 55%. Mild diastolic dysfunction is present (impaired relaxation pattern). Right Ventricle The right ventricle is normal size. The right ventricular systolic function is normal. Atria The left atrium size is normal. The right atrium size is normal. Aortic Valve The aortic valve is normal in structure. No aortic regurgitation is present. There is no aortic valvular stenosis. Mitral Valve The mitral valve is normal in structure. There is no mitral valve regurgitation noted. No evidence of mitral valve stenosis. Tricuspid Valve The tricuspid valve is normal in structure. There is trace tricuspid regurgitation. Estimated PAP 20mmHg plus the right atrial pressure. There is no pulmonary hypertension. Pulmonic Valve Pulmonic valve is not well visualized. There is no pulmonic valvular regurgitation. Great Vessels The aortic root is normal in size. The inferior vena cava is not well visualized. [facility] [place] [address] [place] [address] 2 D/M-MODE ECHOCARDIOGRAM Name: MARILY,ESCOBAR HAKEEM Room #: 513-P ADM IN M.R.#: [id number] Admission: 06/04/19 Attend Phys: Tan Chan, Discharge: Date of : 38 Report #: [id number] Pericardium There is no pericardial effusion. <Conclusion> The left ventricular systolic function is normal. There is normal LV segmental wall motion. LVEF is 55%. Mild diastolic dysfunction The aortic valve is normal in structure. No aortic regurgitation or stenosis The mitral valve is normal in structure. No mitral valve regurgitation. There is trace tricuspid regurgitation. Estimated pulmonary artery pressure of 20mmHg plus the right atrial pressure. There is no pericardial effusion. <ELECTRONICALLY SIGNED> By: Reed Baumann MD, [facility] 06/15/19 1339 1339 1339 Reed Baumann MD, FACC /INF
[2019-06-15 19:35] VITALS: BP 132/65
--- NOTE | 2019-06-15 20:14 | NUR ---
ASSUMED CARE OF PT AT 0715. PT IS A&OX2 AND CONFUSED. VITAL SIGNS ARE STABLE. SKIN TEAR TO LEFT ARM CLEANED AND DRESSING CHANGED PER ORDERS. DENIES PAIN AND PARTICIPATED IN SCHEDULED THERAPIES. FAMILY AT BEDSIDE DURING DINNER AND AT SHIFT CHANGE. ORDERS FOR ECHO THIS SHIFT COMPLETED AND ASPIRIN INCREASED. FALL PRECAUTIONS IN PLACE AND NURSING WILL CONTINUE TO MONITOR.
--- NOTE | 2019-06-15 23:11 | NUR ---
PT ASSESSMENT DONE AND VSS. MEDS GIVEN AND WELL TOLERATED. FALL PRECAUTIONS IN PLACE. SLEEPING WELL. HOURLY ROUNDING. CALL LIGHT IN REACH. WILL CONTINUE TO MONITOR.
--- NOTE | 2019-06-16 16:17 | PLAN ---
[facility] [place] [address] REHAB UNIT PLAN OF CARE Name: LUZ CALIXTO Room #: 513-P ADM IN M.R.#: [id number] Admission: 06/04/19 Attend Phys: Tan Chan MD Discharge: Date of : 38 Report #: [id number] THIS REPORT FOR: //name// CC: Seng Chan DATE OF SERVICE: 06/07/2019 PROGRESS NOTE/OVERALL PLAN OF CARE SUBJECTIVE: The patient is seen back today in followup. He is in no current distress. Temperature 98, pulse 58, respirations 18, blood pressure 145/75. The patient has had some impulsivity noted by nursing, but has not been agitated. He has been able to be redirected. Transfers have been min assist with gait, max assist 50 feet with a front-wheeled walker. In occupational therapy, lower body dressing is moderate assistance. In speech therapy, he is noted to have severe cognitive deficits with severe memory deficits. ASSESSMENT: 1. Lumbar radiculopathy with bilateral lower extremity weakness. 2. Multifactorial encephalopathy. 3. Initial hypertensive urgency. 4. Peripheral vascular disease with coronary artery disease with a history of stenting. 5. Acute renal insufficiency superimposed on chronic kidney disease. 6. Abdominal aortic aneurysm, status post repair history. 7. Renal artery stenosis. 8. Hyperlipidemia. 9. Tobacco abuse. PLAN: The overall plan of care is based on preadmission screen, post-admission physician evaluation and information garnered from therapy assessments. 1. Estimated length of stay is probably at least 10 days to 2 weeks. 2. Medical prognosis is reasonably good. 3. Anticipated interventions includes the interdisciplinary acute inpatient rehabilitation program. 4. Anticipated functional outcomes would be for the patient to become modified independent with transfers, mobility and ADLs as well as to hopefully improve as far as cognition. 5. Discharge destination will be back to the home setting where he lives with his . 6. Expected therapy by discipline includes PT, OT and speech 1 hour per day each 5 day a week throughout the duration of the acute inpatient rehabilitation stay. ADDENDUM [address] [address] REHAB UNIT PLAN OF CARE Name: LUZ CALIXTO Room #: 513-P [facility] IN .R.#: [id number] Admission: 06/04/19 Attend Phys: Tan Chan MD Discharge: Date of : 38 Report #: [id number] The patient did miss some therapies on 06/05/2019 with some gastrointestinal complaints. <ELECTRONICALLY SIGNED> By: Tan Chan MD 06/16/19 1617 0805 [id number] Tan Chan MD /PMT
[2019-06-16 19:38] VITALS: BP 146/82
--- NOTE | 2019-06-16 21:09 | NUR ---
ASSUMED CARE OF PT AT 0715. PT IS A&OX2, CONFUSED AND WANDERING AT TIMES AROUND UNIT, VITAL SIGNS ARE STABLE. PT DENIES PAIN, PARTICIPATED IN SCHEDULED THERAPIES. WOUND TO LUE CHANGED PER ORDERS, WOUND HEALING, NO DRAINAGE, EDEMA, REDNESS, OR WARMTH NOTED TO THE WOUND SITE. FALL PRECAUTIONS IN PLACE. DOORS TO UNIT CLOSED WHEN PT IN W/C, ROOM CLOSE TO NURSES STATION, NURSING WILL CONTINUE TO MONITOR.
--- NOTE | 2019-06-17 00:45 | NUR ---
PT ALERT AND ORIENTED X 1. VOIDING SMALL AMTS CLEAR YELLOW URINE PER URINAL. LEFT ARM DRESSING C/D/I. RFA DRESSING C/D/I. PT HAS NOT BEEN IMPULSIVE SO FAR TONIGHT. BED ALARM ON FOR SAFETY. PT APPEARS TO BE SLEEPING ON HOURLY ROUNDS.
[2019-06-17 08:00] VITALS: BP 144/76
--- NOTE | 2019-06-17 10:11 | NUR ---
ASSUMED CARE AT 0700. PATIENT IS ALERT AND ORIENTED TO PERSON ONLY. PATIENT DE LA PAZ'S, BUSINESS UNIT MANAGER ARE EQUAL. PATIENT GAIT IS UNSTABLE. PATIENT LUNGS ARE CLEAR. ABD IS SOFT WITH BSX4. PATIENT IS INCONTINENT OF URINE, AND URINATES ON THE FLOOR OF THE BATHROOM. RIGHT FORARM WOUND, AND LEFT ARM WOUND. DRESSING CHANGED. UP IN W/C AND OUT TO THE DINING ROOM FOR MEALS. PATIENT TOOK MEDS WITHOUT PROBLEMS. FALL AND SAFETY PROTOCOLS IN PLACE. DENIES PAIN. CONTINUES TO PROGRESS SLOWLY TOWARDS D/C GOALS. WILL CONTINUE TO MONITER.
--- NOTE | 2019-06-17 21:24 | NUR ---
PT ASSESSMENT DONE AND VSS. MEDS GIVEN AND WELL TOLERATED. FALL PRECAUTIONS IN PLACE. SLEEPING WELL. HOURLY ROUNDING. CALL LIGHT IN REACH. WILL CONTINUE TO MONITOR.
--- NOTE | 2019-06-17 21:42 | NUR ---
PT ASSESSMENT DONE AND VSS. MEDS GIVEN AND WELL TOLERATED. FALL PRECAUTIONS IN PLACE. SLEEPING WELL. HOURLY ROUNDING. CALL LIGHT IN REACH. WILL CONTINUE TO MONITOR.
[2019-06-18 09:00] VITALS: BP 116/69
--- NOTE | 2019-06-18 13:52 | NUR ---
ASSUMED CARES AT 0700. PT ORIENTED TO PERSON AND PLACE ONLY. FORGETFUL. MORE INTERACTIVE AND FOLLOWING COMMANDS APPROPRIATELY. DENIES PAIN. VITALS REMAIN STABLE. SKIN TEAR ON LEFT ARM CLEANED AND DRESSING CHANGED, NO DRAINAGE NOTED, SKIN SEEMS TO BE ADHERING WELL. PT REMAINS INCONTINENT OF BOWEL AND BLADDER. UP WITH 1 MIN ASSIST, GB AND WALKER AND TOLERATED WELL. Q1H VISUAL CHECKS. CALL LIGHT WITHIN REACH. FALL PRECAUTIONS IN PLACE
[2019-06-18 20:11] VITALS: BP 155/90
--- NOTE | 2019-06-19 03:45 | NUR ---
ASSUMED CARE AT APPROX 1900 EVENING 06/18. PT LYING IN BED WITH HEAD OF BED ELEVATED SLEEPING AT CHANGE OF SHIFT. PT AWOKE TO TAKE HS MEDS WITH WATER TOLERATING WELL. PT VOIDING PER URINAL. PT APPEARS TO BE SLEEPING SOUNDLY WITH HOURLY ROUNDING CHECKS. BED ALARM ON AND CALL LIGHT IN REACH. WILL CONTINUE TO MONITOR.
[2019-06-19 07:45] VITALS: BP 138/80
[2019-06-19 13:23] LABS: CALCIUM 9.6 mg/dL (8.5-10.1); CREATININE 2.3 mg/dL (0.7-1.3); POTASSIUM 4.6 mmol/L (3.5-5.1)
--- NOTE | 2019-06-19 13:36 | NUR ---
ASSUMED CARES AT 0700. PT AWAKE, ORIENTED TO PERSON AND PLACE ONLY. DENIES PAIN. VITALS REMAIN STABLE. LEFT ARM SKIN TEAR CLEAR AND DRESSING CHANGED, SMALL AMOUNT OF SANGUINOUS DRAINAGE NOTED. RIGHT HAND SKIN TEAR HEALING, DRESSING CHANGED. PT WAS INCONTINENT OF BLADDER *2, CHANGED AND PERICARE COMPLETED. UP WITH 1 MIN ASSIST, GB AND WALKER AND TOLERATED WELL. Q1H VISUAL CHECKS. CALL LIGHT WITHIN REACH. FALL PRECAUTIONS IN PLACE
[2019-06-19 19:30] VITALS: BP 128/78
--- NOTE | 2019-06-20 03:14 | NUR ---
ASSUMED CARE AT APPROX 1900 EVENING 06/19. PT LYING IN BED WITH HEAD OF BED ELEVATED AT CHANGE OF SHIFT WATCHING TV. PT AWAKE, APPROPRIATE AND COOPERATIVE. PT VOIDING PER URINAL. IVF INFUSING PER RIGHT IV SITE. PT TOOK HS MEDS WITH WATER TOLERATING WELL. PT APPEARS TO BE SLEEPING SOUNDLY WITH HOURLY ROUNDING CHECKS. BED ALARM ON AND CALL LIGHT IN REACH. WILL CONTINUE TO MONITOR.
[2019-06-20 03:57] LABS: CALCIUM 9.2 mg/dL (8.5-10.1); CREATININE 2.1 mg/dL (0.7-1.3); POTASSIUM 4.7 mmol/L (3.5-5.1)
[2019-06-20 09:48] VITALS: BP 134/74
--- NOTE | 2019-06-20 17:56 | NUR ---
ASSUMED CARE OF PT AT 0715. PT IS A&OX3, BUT FORGETFUL & IMPULSIVE. IS ON ROOM AIR. DENIES PAIN IN LEFT ARM. DRSG CHANGED BY THIS NURSE & IS INTACT WITHOUT DRAINAGE. PT IS STABLE. IS UP WITH 1 ASSIST, GB, WALKER TO BATHROOM. FALL PRECAUTIONS & HOURLY ROUNDING MAINTAINED THIS SHIFT. CALL LIGHT WITHIN REACH, BUT DOES NOT USE. PT HAS BEEN REEDUCATED THROUGHOUT SHIFT REGARDING CALL LIGHT USAGE. PT IS ACROSS FROM NURSES STATION.
[2019-06-20 19:52] VITALS: BP 153/85
--- NOTE | 2019-06-20 23:21 | NUR ---
PT ASSESSMENT DONE AND VSS. MEDS GIVEN AND WELL TOLERATED. FALL PRECAUTIONS IN PLACE. SLEEPING WELL. HOURLY ROUNDING. CALL LIGHT IN REACH. WILL CONTINUE TO MONITOR.
[2019-06-21 05:26] LABS: ABSOLUTE NEUTROPHILS 6.5 thou/uL (1.4-8.2); BASOPHILS 1.1 % (0.0-2.0); HEMATOCRIT 28.2 % (42.0-52.0); HEMOGLOBIN 9.4 gm/dL (14.0-18.0); LYMPHOCYTES 14.8 % (24.0-44.0); MCH 30.2 pg (26.0-34.0); MCHC 33.3 g/dL (28.0-37.0); MCV 90.6 fL (80.0-100.0); MONOCYTES 9.7 % (1.0-8.0); PLATELET COUNT 372 thou/uL (150-400); POLYS 71.4 % (36.0-66.0); RBC 3.11 mil/uL (4.50-6.00); RDW 14.2 % (10.5-14.5); WBC 9.1 thou/uL (4.0-11.0)
[2019-06-21 05:28] LABS: CALCIUM 8.9 mg/dL (8.5-10.1); CREATININE 1.8 mg/dL (0.7-1.3); MAGNESIUM 1.9 mg/dL (1.8-2.4); POTASSIUM 4.7 mmol/L (3.5-5.1)
[2019-06-21 08:00] VITALS: BP 114/57
[2019-06-21 08:45] VITALS: BP 114/57
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
--- NOTE | 2019-06-21 18:41 | NUR ---
ASSUMED CARE OF PT AT 0715. REPORTS SLEPT GOOD LAST NIGHT, UP COUPLE TIMES FOR URINATION. PT IS A&OX3, BUT FORGETFUL & IMPULSIVE. VSS ON RA. DENIES PAIN. OT GAVE PT SHOWER THIS AM. LEFT ARM. DRSG CHANGED & IS INTACT WITHOUT DRAINAGE. PT UP WITH 1 ASSIST, GB, WALKER TO BATHROOM. URINATED 3X. NO BM. BS PRESENT, DENIES CONSTIPATION. LAST BM WAS 3 DAYS AGO. PT WALKS TO DINNING ROOM FOR MEALS. HAS POOR APPETITE. ATE 10-20% FOR MEALS BUT DRANK ALL HIS ENSURE. WAS HERE EARLIER AT LUNCH. BROUGHT HIM A HOTDOG HE ATE ALL AND PLAYED CARD WITH HER IN DINNING ROOM. PT FALL PRECAUTIONS & HOURLY ROUNDING MAINTAINED THIS SHIFT. CALL LIGHT WITHIN REACH, BUT DOES NOT USE THEM. NURSE MONITOR AND CHECK ON PT FREQUENTLY FOR NEEDS AND SAFETY. ENCOURAGED PT TO DRINK MORE FLUID. HE DRANK SOME BUT NOT MUCH. PT HAS BEEN REEDUCATED THROUGHOUT SHIFT REGARDING CALL LIGHT USAGE. PT IS ACROSS FROM NURSES STATION. FALL PRECAUTION IN PLACE. REDIRECTABLE. SLEEPING IN BED AT THIS MOMENT. WILL GIVE REPORT TO NIGHT NURSE TO CONTINUE TO MONITOR.
[2019-06-21 19:33] VITALS: BP 148/86
--- NOTE | 2019-06-21 21:48 | NUR ---
PT ASSESSMENT DONE AND VSS. MEDS GIVEN AND WELL TOLERATED. FALL PRECAUTIONS IN PLACE. SLEEPING WELL. HOURLY ROUNDING. CALL LIGHT IN REACH. WILL CONTINUE TO MONITOR.
[2019-06-22 08:10] VITALS: BP 139/86
--- NOTE | 2019-06-22 13:12 | NUR ---
team meeting, recommendation: [facility], [facility] ( pt, ot, st, nursing and sw). work with therapy on training and wants to walk with him in hallway with fww if training goes well per therapy.
--- NOTE | 2019-06-22 13:43 | NUR ---
DISCHARGE ANTICIPATED FOR 06/25, PER UNIT CM. HOME WITH HOME HEALTH SERVICES. PATIENT REFERRAL FAXED TO [facility], PER REQUEST. CALL PLACED TO [facility] TO NOTIFY. SPOKE WITH FLORIAN JAVED. FOLLOWING.
--- NOTE | 2019-06-22 14:32 | NUR ---
WOUND CARE F/U; ROUNDING TODAY WITH DR BERGERON. THE LEFT ARM WOUNDWAS ASSESSED. YELLOW TISSUE EAS NOTED BUT OVERALL MUCH IMPROVED. NO ODOR. CONTINUE CURRENT POC
--- NOTE | 2019-06-22 19:15 | NUR ---
ASSUMED CARE OF PT AT 0715. REPORTS SLEPT GOOD LAST NIGHT, PT IS A&OX3, BUT FORGETFUL & IMPULSIVE AT TIME. VSS ON RA. DENIES PAIN. LEFT ARM. DRSG CHANGED & IS INTACT WITHOUT DRAINAGE CHANGED BY WOUND NURSE TODAY. PT UP WITH 1 ASSIST, GB, WALKER TO BATHROOM. REASSESSMENT PER CHART. LAST BM WAS COUPLE DAYS AGO. GAVE PRN [place]. HAD LARGE BM TODAY. PT WALKS TO DINNING ROOM FOR MEALS. HAS POOR APPETITE. ATE 10-20% FOR MEALS BUT DRANK ALL HIS ENSURE. WAS HERE. NOTICED NEW ORDER FOR TO WALK WITH PT WHEN DONE WITH TRAINING.OFFERED SUPPORTIVE CARE. DISCUSSED WITH SHARMAINE ABOUT B/P STABLE. D/C IV FLUID TODAY. ENCOURAGED PT DRINK MORE. HE DRANK 1320CC FLUID TODAY. MORE ALERT AND PARTICIPATE WELL WITH THERAPY TODAY. PT FALL PRECAUTIONS & HOURLY ROUNDING MAINTAINED THIS SHIFT. CALL LIGHT WITHIN REACH, BUT DOES NOT USE THEM. NURSE MONITOR AND CHECK ON PT FREQUENTLY FOR NEEDS AND SAFETY. GAVE REPORT TO NIGHT NURSE TO CONTINUE TO MONITOR.
[2019-06-22 19:41] VITALS: BP 142/84
--- NOTE | 2019-06-23 03:24 | NUR ---
RESTING WELL OVERNIGHT, USING URINAL, FLUIDS ENCOURAGED, TAKING MEDS WITH APPLESAUCE AND SIPS OF WATER.
[2019-06-23 09:30] VITALS: BP 104/58
--- NOTE | 2019-06-23 13:03 | NUR ---
Nutrition followup: pt continues to eat variable amounts of meals on heart healthy diet ranging from 25-75% of meals. Drinks 100% of ensure which he receives TID. This alone provides 1050 kcals and 60 gm protein/day. Weights ~stable. Planned D/C next 24-48 hrs. Continue present interventions and change to low risk.
--- NOTE | 2019-06-23 14:01 | NUR ---
Patient participated in community reintegration on 06/23/19 with PHYSICAL THERAPIST. Refer to documentation by PHYSICAL THERAPY.
--- NOTE | 2019-06-23 18:29 | NUR ---
ASSUMED CARES AT 0700. PT AWAKE, ALERT AND ORIENTED *2-3, FORGETFUL. DENIES PAIN. VITALS STABLE. PT CONTINUES TO HAVE A POOR APPETITE, ENCOURAGED TO INCREASE FLUIDS. WOUNDCARE TO LEFT FOREARM COMPLETED, SITE HEALING, SMALL AMOUNT OF DRAINAGE NOTED. IV RIGHT UPPER ARM REMAINS INTACT AND PATENT. PT UP WITH 1 MIN ASSIST, GB AND WALKER. Q1H VISUAL CHECKS. CALL LIGHT WITHIN REACH. FALL PRECAUTIONS IN PLACE
[2019-06-23 19:39] VITALS: BP 150/87
--- NOTE | 2019-06-24 02:57 | NUR ---
TURNING SELF IN BED, DRINKING FLUIDS WHEN AWAKE AND USING URINAL. LOOKING FORWARD TO GOING HOME TODAY.
[2019-06-24 06:22] LABS: ABSOLUTE NEUTROPHILS 6.1 thou/uL (1.4-8.2); BASOPHILS 1.3 % (0.0-2.0); EOSINOPHILS 4.5 % (0.0-3.0); HEMATOCRIT 25.8 % (42.0-52.0); HEMOGLOBIN 8.6 gm/dL (14.0-18.0); LYMPHOCYTES 13.9 % (24.0-44.0); MCH 30.4 pg (26.0-34.0); MCHC 33.1 g/dL (28.0-37.0); MCV 91.7 fL (80.0-100.0); PLATELET COUNT 336 thou/uL (150-400); POLYS 69.3 % (36.0-66.0); RBC 2.82 mil/uL (4.50-6.00); RDW 14.2 % (10.5-14.5); WBC 8.8 thou/uL (4.0-11.0)
[2019-06-24 06:43] LABS: CALCIUM 9.1 mg/dL (8.5-10.1); CREATININE 2.1 mg/dL (0.7-1.3); MAGNESIUM 1.9 mg/dL (1.8-2.4); POTASSIUM 4.6 mmol/L (3.5-5.1)
[2019-06-24 10:03] LABS: % SATURATION 14 % (20-39); IRON 31 ug/dL (65-175); TIBC 220 ug/dL (250-450)
[2019-06-24 10:15] VITALS: BP 130/78
--- NOTE | 2019-06-24 10:28 | NUR ---
cm spoke with purnima via phone call rt dcp date " still planning on tomorrow but later in the day with bad weather coming in"/purnima. dc with [facility] ( pt, ot, st, nursing, sw). fww will be delivered today for dc tomorrow from provider plus rt possible bad weather tomorrow. bedside nurse fax dc order and summary the day of dc to [facility] [phone], phone # [phone].
[2019-06-24 10:37] VITALS: BP 130/78
--- NOTE | 2019-06-24 15:51 | NUR ---
ASSUMED CARES AT 0700. PT AWAKE, ORIENTED TO PERSON, PLACE AND TIME. IMPULSIVE. DENIES PAIN. VITALS REMAIN STABLE. PT ENCOURAGED ORAL FLUIDS, PUSHING FLUIDS TOLERATED. WOUND ON LEFT WRIST/ FOREARM CLEANED AND DRESSING CHANGED. PT WAS INCONTINENT OF URINE*1 THIS AM. NO BM TODAY, AWAITING TO COLLECT SPECIMEN FOR OCCULT BLOOD R/T DROPS IN RECENT CBC VALUES. FREQ. VISUAL CHECKS. CALL LIGHT WITHIN REACH. FALL PRECAUTIONS IN PLACE
[2019-06-24 19:46] VITALS: BP 151/81
--- NOTE | 2019-06-25 03:10 | NUR ---
ASSESSED AT START OF SHIFT PT A&OX3 COWL[place]Z AND HAS BILATERAL HEARING AID. LOOKING FORWARD TO DC TOMORROW. URINAL AT BEDSIDE AND PT UP WITH SBA TO BATHROOM HAD 1 INCONTINENT THIS SHIFT PT WAS ABLE TO CHANGE AND PUT ON DEPENDENTS BRIEFS BY SELF. DRESSING INTACT IN LFT FOREARM. PO FLUIDS ENCOURAGED AND FALL PREC IN PLACE. WILL CONT WITH POC TILL EOS
[2019-06-25 08:30] VITALS: BP 135/73
[2019-06-25 10:28] VITALS: BP 130/78
--- NOTE | 2019-06-25 12:56 | NUR ---
PT CARE ASSUMED AT 0700. A&Ox3. PT IS DISCHARGING TODAY AFTER HIS MEDICATIONS HAVE BEEN VERIFIED THAT HE ALREADY HAS AT HOME. PT WAS UP IN HIS RECLINER MOST OF THE MORNING. BILATERAL HEARING AIDS. PT HAS HAD A INCONTINENT MOMENT AND HIS PANTS ARE BEING WASHED SO HE CAN WEAR THEM WHEN HE DISCHARGES. WOUND DRESSING HAS BEEN PERFORMED AND DISCHARGE PICTURE HAS BEEN TAKEN AND IS IN CHART. AWAITING PT TO HAVE A BM AND IF SO WE NEED TO SEND A SAMPLE TO THE LAB. IF NOT COLLECTED THEN HE CAN STILL DISCHARGE. PT IS AT BED SIDE. PAPER WORK FAXED TO PCP DR. POP.
[2019-06-25] MEDS ORDERED: FLOMAX0.4 MG PO (13:10)
[2019-06-25] MEDS ORDERED: LIPITOR40 MG PO (13:11)
[2019-06-25] MEDS ORDERED: BYSTOLIC 5 MG5 M1 PO (13:11)
[2019-06-25] MEDS ORDERED: COZAAR 25 MG TA25 M1 PO (13:12)
[2019-06-25] MEDS ORDERED: ASPIR 8181 MG PO (13:12)
[2019-06-25] MEDS ORDERED: PROTONIX 20 MG20 MG PO (13:14)
--- NOTE | 2019-06-28 10:51 | NUR ---
PT DISCHARGED TO HOME WITH [facility] ON Friday06/25/19 SPOKE WITH AXEL IN ADM SHE DID NOT RECEIVED DC ORDERS/SUMMARY. FAXED DC ORDERS AND SPOKE WITH KINZA IN INTAKE SHE RECEIVED ORDERS AND WILL NOTIFY PT TIME OF VISITS.
== END 2019-06-25 14:30 | disposition home health service (06) | DRG 65 ==
PROVIDERS: Hospitalist; Nurse Practitioner; Nurse Practitioner Family; ADMIT Physical Medicine & Rehabilitation
PROC: 0HQDXZZ Repair Right Lower Arm Skin, External Approach (ICD-10-PCS; principal; 2019-06-10)
DX: I63.9 Cerebral infarction, unspecified (principal); M54.16 Radiculopathy, lumbar region; G93.40 Encephalopathy, unspecified; N17.9 Acute kidney failure, unspecified; E44.0 Moderate protein-calorie malnutrition; Z68.1 Body mass index [BMI] 19.9 or less, adult; I16.0 Hypertensive urgency; N18.9 Chronic kidney disease, unspecified; R41.0 Disorientation, unspecified; I12.9 Hypertensive chronic kidney disease with stage 1 through stage 4 chronic kidney disease, or unspecified chronic kidney disease; E78.00 Pure hypercholesterolemia, unspecified; J44.9 Chronic obstructive pulmonary disease, unspecified; K21.9 Gastro-esophageal reflux disease without esophagitis; I65.23 Occlusion and stenosis of bilateral carotid arteries; I25.10 Atherosclerotic heart disease of native coronary artery without angina pectoris; I73.9 Peripheral vascular disease, unspecified; I70.1 Atherosclerosis of renal artery; E78.5 Hyperlipidemia, unspecified; R53.81 Other malaise; F03.90 Unspecified dementia, unspecified severity, without behavioral disturbance, psychotic disturbance, mood disturbance, and anxiety; F01.50 Vascular dementia, unspecified severity, without behavioral disturbance, psychotic disturbance, mood disturbance, and anxiety; S51.812A Laceration without foreign body of left forearm, initial encounter; M41.9 Scoliosis, unspecified; Z66 Do not resuscitate; S51.012A Laceration without foreign body of left elbow, initial encounter; S51.011A Laceration without foreign body of right elbow, initial encounter; R63.4 Abnormal weight loss; G43.909 Migraine, unspecified, not intractable, without status migrainosus; D64.9 Anemia, unspecified; Z95.5 Presence of coronary angioplasty implant and graft; X58.XXXA Exposure to other specified factors, initial encounter; Y93.89 Activity, other specified; Y92.89 Other specified places as the place of occurrence of the external cause; Y99.8 Other external cause status
CPT/HCPCS: 10112